=== PATIENT | male | born 1975 | race Caucasian/White ===

== ENCOUNTER 2020-01-16 23:30 | Observation (INO) | payer BC, SELFPAY ==
--- NOTE | ~2020-01-16 | US_ITS ---
EXAMINATION: US venous doppler [facility] DATE: 01/17/2020 09:27 INDICATION: Acute pulmonary emboli. TECHNIQUE: Grayscale ultrasound images without and with compression and Doppler ultrasound images of the bilateral lower extremity veins were obtained. COMPARISON: None. FINDINGS: The visualized portions of right common femoral vein, profunda (deep) femoral vein, femoral vein, pop liteal vein, peroneal veins, posterior tibial veins, and greater saphenous vein outflow are patent. The visualized portions of left common femoral vein, profunda femoral vein, femoral vein, popliteal v ein, peroneal veins, posterior tibial veins, and greater saphenous vein outflow are patent. There is thrombus in left gastrocnemius vein. IMPRESSION: 1. Deep vein thrombosis involving left gastrocnemius vein. Reviewed, dictated and finalized at location A.
--- NOTE | ~2020-01-16 | CT_ITS ---
EXAMINATION: CTA chest PE protocol DATE: 01/17/2020 01:01 INDICATION: Right chest wall pain. Shortness of breath. TECHNIQUE: Computed tomography angiography (CTA) of the chest was performed with 100 mL Omnipaque-350 intravenous contrast timed to evaluate the pulmonary arteries. Coronal maximum intensity projection 3D-reconstructions were created by the technologist. Automated exposure control and iterative reconst ruction technique were employed. The dose-length product was 851.29 mGy-cm. COMPARISON: CT abdomen and pelvis 01/27/2015 FINDINGS: There is mild atelectasis bilaterally. There are groundglass and airspace opacities in late robasal segment right lower lobe. There is a 5 mm nodule at minor fissure, likely benign. No pleural effusion. The heart size is normal. There are coronary artery calcifications. No pericardial effusion . There is suboptimal opacification of the pulmonary arteries. There are acute pulmonary emboli in th e lower lobes, right worse than left. Sensitivity is decreased by motion artifact. There is diffuse h epatic steatosis. There is mild thoracic spondylosis. IMPRESSION: 1. Acute pulmonary emboli in the lower lobes. 2. Groundglass and airspace opacities in laterobasal segment right lower lobe, consistent with infarc t. Reviewed, dictated and finalized at location A. IMPRESSION: 1. Acute pulmonary emboli in the lower lobes. 2. Groundglass and airspace opacities in laterobasal segment right lower lobe, consistent with infarct.
--- NOTE | ~2020-01-16 | XR_ITS ---
EXAMINATION: XR chest 2V DATE: 01/17/2020 00:25 INDICATION: Chest wall pain with inspiration. Shortness of breath. TECHNIQUE: Frontal and lateral views of the chest were obtained. COMPARISON: Chest CT 01/17/2020 FINDINGS: The chest demonstrates clear lungs without pneumonia, pleural effusion, or pneumothorax. Th e heart size is normal. IMPRESSION: 1. No acute cardiopulmonary disease. Reviewed, dictated and finalized at location A.
[2020-01-16 23:33] VITALS: BP 145/106; PULSE 109; RESP 24; TEMP 36.6; O2SAT 97
--- NOTE | 2020-01-16 23:43 | ECG_ITS ---
Measurements Intervals [place] Rate: 103 P: 42 OH: 127 QRS: 49 QRSD: 105 T: 40 QT: 315 QTc: 412 Interpretive Statements SINUS TACHYCARDIA POSSIBLE LEFT ATRIAL ENLARGEMENT INFERIOR INFARCT, AGE INDETERMINATE BASELINE ARTIFACT- I, II, AVR, AVL, V3 BORDERLINE ECG Electronically Signed On 01-17-2020 6:56:28 CDT by Ricky Lowe D.O.
--- NOTE | 2020-01-16 23:45 | ED.SOB ---
HPI - SOB/Dyspnea General Chief Complaint: Shortness of Breath/Dyspnea Stated Complaint: sob Time Seen by Provider: 01/16/20 23:43 History of Present Illness HPI Narrative: 44 yo male presentig from home with chest pain. His symptoms started with tingling in the right side of his face this morning. He then developed a pain the spread down the right side of his neck and chest. The pain is worse with breathing and coughing. He feels mildly SOB. He reports mild temperature elevation earlier in the day. No pain or swelling in the calfs. His is a daily smoker. No known sick contacts. Related Data Allergies Allergy/AdvReac Type Severity Reaction Status Date / Time No Known Allergies Allergy Unknown Verified 01/16/20 23:49 Review of Systems Review of Systems: All systems reviewed & are unremarkable except as noted in HPI and below Constitutional: Constitutional: Denies chills Cardiovascular: Cardiovascular: Reports chest pain and Reports radiating jaw, neck or arm pain Respiratory: Respiratory: Reports cough and Reports dyspnea Gastrointestinal: Gastrointestinal: Denies nausea and Denies vomiting Neurologic: Denies dizziness and Denies weakness PMFSH Family History Family History Grandparent Family history of pancreatic cancer Social History Social History Smoking status: Light tobacco smoker Alcohol intake: never Exam Const: General: healthy appearing and alert Nutritional Appearance: well nourished Orientation/consciousness: patient oriented x3 Other: Mild distress HENMT: Head: normal to inspection Chest: Chest palpation & inspection: tenderness rib (right) Resp: Effort & Inspection: tachypneic (shallow) Auscultation: wheezes Cardio: Rate: tachycardic Rhythm: regular rhythm GI: GI Palp: Yes Soft to palpation and No Tenderness to palpation present (GI) Skin: General skin exam: normal color Rashes: no rashes Neuro: General: patient oriented x3, moves all extremities and CN's II-XI intact bilaterally Speech: normal speech Extrem: General: normal to inspection and no edema Other: no calf tenderness Course Vital Signs Vital signs: Vital Signs Temperature 36.6 C 01/16/20 23:33 Pulse Rate 109 H 01/16/20 23:33 Respiratory Rate 24 H 01/16/20 23:33 Blood Pressure 145/106 H 01/16/20 23:33 Pulse Oximetry 97 01/16/20 23:33 Temperature 36.6 C 01/16/20 23:33 Pulse Rate 97 01/17/20 01:32 Respiratory Rate 35 H 01/17/20 01:32 Blood Pressure 141/78 H 01/17/20 01:32 Pulse Oximetry 98 01/17/20 01:32 MDM - SOB/Dyspnea Differential Diagnosis Differential diagnosis: Likely acute exacerbation of chronic obstructive airways disease, community acquired pneumonia and pulmonary embolism Medical Records Attestation: I reviewed the patient's medical records. Lab Data Attestation: I reviewed the patient's lab results. Result diagrams: 01/16/20 23:48 01/16/20 23:48 Labs: Lab Results 01/16/20 01/16/20 Range/Units 23:48 23:48 WBC 15.4 H (4.5-10.0) K/mm3 RBC 5.53 (4.6-6.20) M/mm3 Hgb 16.6 (14.0-18.0) g/dL Hct 47.4 (42.0-52.0) % MCV 85.7 (80-100) fl MCH 30.0 (26-34) pg MCHC 35.0 (32-36) g/dl RDW 12.0 (11.5-14.5) % Plt Count 206 (150-375) k/mm3 MPV 9.6 (7.4-10.4) fl Immature Gran % (Auto) 0.5 (0-0.5) % Neut % (Auto) 69.2 (45.5-73.1) % Lymph % (Auto) 21.1 (18.3-44.2) % [place] % (Auto) 8.3 (2.6-8.5) % Eos % (Auto) 0.7 (0-4.4) % Baso % (Auto) 0.2 (0.2-1.2) % Lymph # (Auto) 3.24 H (0.9-3.2) K/mm3 [place] # (Auto) 1.3 H (0.1-0.6) K/mm3 Eos # (Auto) 0.1 (0-0.3) K/mm3 Baso # (Auto) 0.0 (0.0-0.1) K/mm3 Abs Immat Gran (auto) 0.08 H (0.00-0.031) K/mm3 Absolute Neuts (auto) 10.6 H (1.3-6.7) K/mm3 Absolute Nucleated RBC 0.0 (0.0-0.012) K/mm3 Nucleated
[2020-01-16 23:47] VITALS: PULSE 106
[2020-01-16] MEDS: diazePAM INJ (*CRX) 10 MG/2 ML SYRINGE 5 MG IV PUSH (23:52)
[2020-01-16] MEDS: SODIUM CHLORIDE 0.9% IV 1,000 ML 999 ML IV CONT (23:53)
[2020-01-16 23:54] LABS: Basophils Percent Auto 0.2 % (0.2-1.2); Eosinophils Absolute Auto 0.1 K/mm3 (0-0.3); Eosinophils Percent Auto 0.7 % (0-4.4); Hematocrit 47.4 % (42.0-52.0); Hemoglobin 16.6 g/dL (14.0-18.0); Immature Granulocyte Absolute 0.08 K/mm3 (0.00-0.031); Immature Granulocyte Percent A 0.5 % (0-0.5); Lymphocytes Absolute Auto 3.24 K/mm3 (0.9-3.2); Lymphocytes Percent Auto 21.1 % (18.3-44.2); Mean Corpuscular Volume 85.7 fl (80-100); Mean Platelet Volume 9.6 fl (7.4-10.4); Monocytes Absolute Auto 1.3 K/mm3 (0.1-0.6); Monocytes Percent Auto 8.3 % (2.6-8.5); Neutrophils Absolute Auto 10.6 K/mm3 (1.3-6.7); Neutrophils Percent Auto 69.2 % (45.5-73.1); Platelet Count Result 206 k/mm3 (150-375); Red Blood Count 5.53 M/mm3 (4.6-6.20); White Blood Count 15.4 K/mm3 (4.5-10.0)
[2020-01-16 23:55] VITALS: PULSE 97; RESP 26
[2020-01-16] MEDS: ALBUTEROL SULFATE NEB 2.5 MG/0.5 ML INH 5 MG INHALATION (23:55)
[2020-01-16] MEDS: IPRATROPIUM BR 0.02% INH SOLN 0.5 MG/2.5 ML VIAL INHALATION (23:55)
[2020-01-17] VITALS (25 sets, daily range): BP systolic 120–164; BP diastolic 78–93; PULSE 87–128; RESP 15–35; TEMP 36.4–37.3; O2SAT 93–98; BMI 33.5
[2020-01-17 00:06] LABS: Anion Gap 12 mmol/L (8-16); Blood Urea Nitrogen 15 mg/dL (9-20); Calcium 9.4 mg/dL (8.4-10.2); Carbon Dioxide 22 mmol/L (22-30); Chloride 104 mmol/L (98-107); Estimated Glomerular Filt Rate > 60; Glucose 116 mg/dL (75-110); Potassium 4.1 mmol/L (3.4-5.0); Sodium 138 mmol/L (137-145)
[2020-01-17] MEDS: MORPHINE SULFATE (*CRX) 4 MG/ML INJ IV PUSH ×2 (01:35→03:45)
[2020-01-17] MEDS: ENOXAPARIN 100 MG/ML SYRINGE SUB-Q (01:37)
--- NOTE | 2020-01-17 02:20 | PM.IMHP ---
H&P: HPI History of Present Illness Date/Time: 01/17/20 02:20 Chief complaint: pulmonary emboli Narrative: This is a pleasant obese 44-year-old male who presented to the hospital with complaint of waking up this morning with right-sided pleuritic chest pain. He also experience tingling of the right side of his face this morning that seemed to resolve at this time. His chest discomfort is worse with any movement, breathing, or coughing. Denies any significant shortness of breath. The patient did have fever earlier yesterday. He denies any lower extremity swelling or pain. He is known to smoke about 5 cigarettes a day. The patient denies any recent surgeries or long distance travel. He is not known to have any active cancer. And he is not on any supplemental testosterone therapy. Patient was evaluated emergency room this evening and found to have right lower lobe pulmonary emboli with pulmonary infarction and possible left pulmonary emboli as well. The patient has no previous history of blood clots although he mentions that his mother has had blood clots in the past. He denies any recent trauma. Review of Systems Review of Systems: All systems reviewed & are unremarkable except as noted in HPI and below PMFSH Surgical History Surgical History History of appendectomy Family History Family History Grandparent Family history of pancreatic cancer Social History Social History Years smoked: 20 Smoking status: Current every day smoker Tobacco type: cigarettes Alcohol intake: never Substance use: never Gender identity (if verbalized by the patient): Male Spiritual care concerns: No Comments No significant past medical history. Meds Home Medications and Allergies Home Medications Medication Instructions Recorded Confirmed Type calcium carbonate [Tums] 500 mg PO Q6H PRN 01/17/20 01/17/20 History ibuprofen 600 mg PO Q6H PRN 01/17/20 01/17/20 History Allergies Allergy/AdvReac Type Severity Reaction Status Date / Time No Known Allergies Allergy Unknown Verified 01/16/20 23:49 Vital Signs Vital Signs - 24 hr 01/16/20 23:33 01/16/20 23:47 01/16/20 23:55 Temperature 36.6 C Pulse Rate 109 H 106 H 97 Respiratory Rate 24 H 26 H Blood Pressure 145/106 H Pulse Oximetry 97 01/17/20 01:32 Temperature Pulse Rate 97 Respiratory Rate 35 H Blood Pressure 141/78 H Pulse Oximetry 98 Exam Const: General: cooperative, alert, awake and acute distress ( right-sided chest wall tenderness) mild Nutritional Appearance: well nourished Orientation/consciousness: patient oriented x3 HENMT: Head: normal to inspection General nose exam: Normal external nose present Face and sinus: normal facial exam Mouth: Yes Normal oral and palatal mucosa present and Yes oropharynx normal Eyes: Pupils: Equal, round and reactive pupils present EOM: EOMs intact bilaterally Neck: Neck: supple and no JVD Thyroid: thyroid normal Lymphatic: lymphadenopathy not noted Resp: Effort & Inspection: normal respiratory effort Auscultation: clear to auscultation bilaterally Cardio: Rate: regular rate Rhythm: regular rhythm Heart sounds: no murmurs GI: Inspection: normal to inspection Auscultation: normal bowel sounds Skin: General skin exam: normal color and no rashes or lesions noted Neuro: General: patient oriented x3 Cranial nerves: Yes CN's II-XII intact bilaterally and Yes Equal, round and reactive pupils present Speech: normal speech Motor exam (neuro): 5/5 motor strength present throughout Sensory Exam: normal sensation Extrem: General: normal to inspection and no edema Psych: Mental Status: mental status grossly normal Affect: normal affect H&P: Results Labs Labs: Short CBC 01/16/20 Range/Units 23:4
--- NOTE | 2020-01-17 02:36 | ADMGEN ---
This patient, Kodi Hamlin, was admitted to 3 [facility] Room 307-01 at 0234. Report received from Marian LUCAS in the ED. Patient/family oriented to hospital policies and general routines including ID bracelet, bed and alarms, visiting hours, pain management, procedures, bathroom and other care routines, personal items, smoking policy, room service/diet, and visiting hours. Valuables list has been completed. Information on how to activate the Rapid Response Team has been discussed. Patient/Family are encouraged to report perceived risks to care and to ask questions if they do not understand what they are told or what they should do.
[2020-01-17] MEDS: ALBUTEROL SULFATE NEB 2.5 MG/0.5 ML INH 5 MG INHALATION ×4 (02:56→22:45)
[2020-01-17] MEDS: IPRATROPIUM BR 0.02% INH SOLN 0.5 MG/2.5 ML VIAL INHALATION ×4 (02:56→22:46)
[2020-01-17] MEDS: hydrALAZINE HCL 20 MG/ML VIAL 10 MG IV PUSH (03:46)
[2020-01-17] MEDS: HYDROmorphone HCL INJ (*CRX) 1 MG/ML SYR IV PUSH ×3 (05:17→22:49)
[2020-01-17 06:25] LABS: Basophils Percent Auto 0.2 % (0.2-1.2); Eosinophils Percent Auto 0.1 % (0-4.4); Hemoglobin 15.8 g/dL (14.0-18.0); Immature Granulocyte Absolute 0.09 K/mm3 (0.00-0.031); Immature Granulocyte Percent A 0.6 % (0-0.5); Lymphocytes Absolute Auto 1.74 K/mm3 (0.9-3.2); Lymphocytes Percent Auto 11.6 % (18.3-44.2); Mean Corpuscular HGB Conc 34.3 g/dl (32-36); Mean Corpuscular Hemoglobin 29.9 pg (26-34); Mean Corpuscular Volume 87.1 fl (80-100); Mean Platelet Volume 9.5 fl (7.4-10.4); Monocytes Absolute Auto 1.3 K/mm3 (0.1-0.6); Monocytes Percent Auto 8.8 % (2.6-8.5); Neutrophils Absolute Auto 11.8 K/mm3 (1.3-6.7); Neutrophils Percent Auto 78.7 % (45.5-73.1); Platelet Count Result 190 k/mm3 (150-375); Red Blood Count 5.28 M/mm3 (4.6-6.20); Red Cell Distribution Width 12.1 % (11.5-14.5)
[2020-01-17 06:38] LABS: Anion Gap 11 mmol/L (8-16); Blood Urea Nitrogen 14 mg/dL (9-20); Calcium 8.8 mg/dL (8.4-10.2); Carbon Dioxide 23 mmol/L (22-30); Chloride 103 mmol/L (98-107); Estimated CRCL calculation 119 ml/min; Estimated Glomerular Filt Rate > 60; Glucose 185 mg/dL (75-110); Potassium 3.6 mmol/L (3.4-5.0); Sodium 137 mmol/L (137-145)
[2020-01-17 08:05] LABS: Troponin I < 0.012 ng/mL (0.000-0.034)
--- NOTE | 2020-01-17 09:48 | PM.IMPN ---
Progress Note: A&P Assessment and Plan (1) Pulmonary embolism: Qualifiers: Pulmonary embolism type: multiple subsegmental (without acute cor pulmonale) Qualified Code(s): I26.94 - Multiple subsegmental pulmonary emboli without acute cor pulmonale Code(s): I26.99 - Other pulmonary embolism without acute cor pulmonale Status: Acute Assessment and Plan: The patient has been admitted for observation. B/l Lower lung PEs with associated right infarct and DVT of left gastrocnemius. He still has some pain this morning, although just received dilaudid this morning. Also having associated N/v this morning Continue therapeutic Lovenox and transition to oral anticoagulant; Eliquis is being priced by [facility] It has been explained to the patient in detail that he should be tested for hereditary forms of thrombophilia in the outpatient when he is discharged since his mother also had a history of blood clots and his current pulmonary emboli seem to have been unprovoked. Factor V leiden ordered for tomorrow, however further testing will likely need to wait until after VTE treatment as an outpatient Will taper narcotics to see if any improvement Zofran PRN for n/v Monitor overnight (2) Hypertension: Qualifiers: Hypertension type: unspecified Qualified Code(s): I10 - Essential (primary) hypertension Code(s): I10 - Essential (primary) hypertension Status: Acute Assessment and Plan: BP 120s sys this morning PRN hydralazine IV w/ parameters. (3) Leukocytosis: Qualifiers: Leukocytosis type: unspecified Qualified Code(s): D72.829 - Elevated white blood cell count, unspecified Code(s): D72.829 - Elevated white blood cell count, unspecified Status: Acute Assessment and Plan: WBC 15k this morning. Likely secondary to pulmonary emboli and pulmonary infarction. Monitor CBCd. D/c abx (4) Obesity (BMI 30.0-34.9): Code(s): E66.9 - Obesity, unspecified Status: Chronic Assessment and Plan: Healthy lifestyle decisions were encouraged. (5) Tobacco dependence: Code(s): F17.200 - Nicotine dependence, unspecified, uncomplicated Status: Chronic Assessment and Plan: No need for nicotine patch at this time Will provide smoking cessation education Subjective Date/time seen: 01/17/20 09:48 Interval history: Patient is a 44 yo M who is seen in follow up for acute PEs with associated right sided lung infarct evident on CTA of the chest, as well as, DVT of left gastrocnemius vein. Patient is not feeling well this morning, but better then last night. He was nausea and vomiting last night and this morning. His pain is improved with IV dilaudid given this morning. He noted sweats last night but stated he thinks this was because of his pain. His pain is worse with deep inspiration, pleuritic in nature. No other complaints at the moment. Denies f/c, myalgias/arthralgias, headaches, dizziness, lightheadedness, palpitations, cough, d/c, abd pain, changes in BMs, dysuria, hematuria, cloudy urine, calf pain/swelling. Review of Systems Review of Systems: All systems reviewed & are unremarkable except as noted in HPI and below Exam Narrative: Exam Narrative: General: Patient resting supine in bed; ill, uncomfortable, and tired appearing. Difficulty sitting up due to pain. HEENT: Normocephalic, EOMI, oral mucosa moist. Cardiovascular: Rate and rhythm are regular. No notable murmur, rub, or gallop. Respiratory: Lungs clear to auscultation all claudio. Non-labored breathing. Abdomen: Soft, non-tender, non-distended, bowel sounds present. Extremities: Peripheral pulses intact. No edema. NTTP b/l calves Neuro: No focal neurological deficits. Speech is clear. Objective Data Vital S
[2020-01-17] MEDS: ONDANSETRON INJ 4 MG/2 ML VIAL IV PUSH (09:50)
[2020-01-17] MEDS: ENOXAPARIN 120 MG/0.8 ML SYRINGE 110 MG SUB-Q (10:08)
[2020-01-17] MEDS: LORazepam INJ (*CRX) 2 MG/ML VIAL 0.25 MG IV PUSH (16:30)
[2020-01-17] MEDS: HYDROmorphone HCL INJ (*CRX) 1 MG/ML SYR 0.5 MG IV PUSH (16:32)
[2020-01-17] MEDS: APIXABAN 5 MG TABLET 10 MG PO (21:25)
--- NOTE | 2020-01-17 23:23 | PC.NURSE ---
01/17/20 at 2230--patient sitting at bed coughing up thick moderate amount of yellow sputum, notified Dr Carter of increased coughing with small amount of blood tinged sputum in emesis basis, respiratory at bedside for resp treatment, new orders received at this time. TDialRNC
[2020-01-18] VITALS (11 sets, daily range): BP systolic 117; BP diastolic 59; PULSE 80–120; RESP 18–22; TEMP 36.8; O2SAT 90–92
--- NOTE | 2020-01-18 | ECHO_ITS ---
Patient Info Name: Kodi Hamlin Age: 44 years : 1975 Gender: Male Ht: 72 in Wt: 246 lbs BSA: 2.41 m2 HR: 95 bpm BP: 117 / 59 mmHg Heart Rhythm: Sinus Rhythm Technical Quality: Good Exam Date: 01/18/2020 11:36 AM Exam Location: [facility] Card Pulmonary Patient Status: Inpatient Admit Date: 01/17/2020 Staff Ordering Physician: Hafsa Campbell PA-C Licensed Clinician: Jono Abdul RDCS Attending Provider: Hafsa Campbell PA-C Referring Physician: Shannan GARCÍA; Exam Type: CA echo doppler color flow Study Info Indications I26.99 - Other pulmonary embolism without acute cor pulmonale Complete two-dimensional, color flow and Doppler transthoracic echocardiogram is performed. History/Risk Factors Bilateral pulmonary embolism w/ DVT. Summary 1. Complete two-dimensional, color flow and Doppler transthoracic echocardiogram is performed. 2. Left ventricular chamber dimension is normal. 3. Left ventricular systolic function is normal, estimated at 60-65%. 4. The left ventricular diastolic function is normal. 5. E/e' 7 is not elevated. 6. No pulmonary hypertension, estimated pulmonary arterial systolic pressure is 24 mmHg. Left Ventricle E/e' 7 is not elevated. Left ventricular chamber dimension is normal. Left ventricular systolic function is normal, estimated at 60-65%. The left ventricular diastolic function is normal. Right Ventricle Right ventricular systolic function is normal with normal TAPSE 2.1 cm. Right ventricular chamber dimension is normal. Left Atria Left atrial chamber dimension is normal. Right Atria Right atrial chamber dimension is normal. Aortic Valve The aortic valve is trileaflet. There is no aortic valve stenosis. There is no aortic valve regurgitation. Pulmonic Valve There is no pulmonic regurgitation. Mitral Valve There is no mitral valve stenosis. There is no mitral valve regurgitation. Tricuspid Valve There is no tricuspid valve regurgitation. No pulmonary hypertension, estimated pulmonary arterial systolic pressure is 24 mmHg. Pericardium/Pleural There is no pericardial effusion. Inferior Vena Cava Normal inferior vena cava with >50% collapse upon inspiration consistent with normal right atrial pressure, 5 mmHg. Aorta The aortic root size at the sinus of Valsalva is normal. Left Ventricular Outflow Tract Name Value Normal LVOT 2D LVOT Diameter 2.1 cm LVOT Doppler LVOT Peak Gradient 6 mmHg LVOT Mean Gradient 3 mmHg LVOT VTI 21 cm LVOT VTI/AV VTI Ratio 0.8 LVOT Stroke Volume 71 ml LVOT CO 6.5 l/min LVOT CI 2.7 l/min/m2 Mitral Valve Name Value Normal MV Doppler
[2020-01-18] MEDS: ALBUTEROL SULFATE NEB 2.5 MG/0.5 ML INH 5 MG INHALATION ×3 (03:42→13:38)
[2020-01-18] MEDS: IPRATROPIUM BR 0.02% INH SOLN 0.5 MG/2.5 ML VIAL INHALATION ×3 (03:43→13:38)
[2020-01-18] MEDS: guaiFENesin/DEXTROMETHORPHAN 10 ML UDC PO (04:03)
[2020-01-18] MEDS: HYDROmorphone HCL INJ (*CRX) 1 MG/ML SYR IV PUSH (04:04)
[2020-01-18 06:35] LABS: Basophils Percent Auto 0.1 % (0.2-1.2); Hematocrit 43.3 % (42.0-52.0); Hemoglobin 14.7 g/dL (14.0-18.0); Immature Granulocyte Absolute 0.09 K/mm3 (0.00-0.031); Immature Granulocyte Percent A 0.6 % (0-0.5); Lymphocytes Absolute Auto 1.33 K/mm3 (0.9-3.2); Lymphocytes Percent Auto 9.5 % (18.3-44.2); Mean Corpuscular HGB Conc 33.9 g/dl (32-36); Mean Corpuscular Hemoglobin 29.6 pg (26-34); Mean Corpuscular Volume 87.1 fl (80-100); Mean Platelet Volume 9.5 fl (7.4-10.4); Monocytes Absolute Auto 1.1 K/mm3 (0.1-0.6); Monocytes Percent Auto 7.6 % (2.6-8.5); Neutrophils Absolute Auto 11.5 K/mm3 (1.3-6.7); Neutrophils Percent Auto 82.2 % (45.5-73.1); Platelet Count Result 178 k/mm3 (150-375); Red Blood Count 4.97 M/mm3 (4.6-6.20); Red Cell Distribution Width 12.3 % (11.5-14.5)
[2020-01-18 06:56] LABS: Anion Gap 9 mmol/L (8-16); Blood Urea Nitrogen 13 mg/dL (9-20); Carbon Dioxide 26 mmol/L (22-30); Chloride 102 mmol/L (98-107); Estimated CRCL calculation 119 ml/min; Estimated Glomerular Filt Rate > 60; Glucose 159 mg/dL (75-110); Magnesium 2.1 mg/dL (1.6-2.3); Potassium 3.7 mmol/L (3.4-5.0); Sodium 137 mmol/L (137-145)
[2020-01-18] MEDS: APIXABAN 5 MG TABLET 10 MG PO (09:04)
[2020-01-18] MEDS: ACETAMINOPHEN 325 MG TABLET 650 MG PO (09:05)
--- NOTE | 2020-01-18 14:04 | PM.DS ---
DS: Admitting Diagnosis Admitting Diagnosis Admitting Diagnosis: pulmonary emboli DS: Discharge Diagnosis Discharge Diagnosis (1) Pulmonary embolism: Qualifiers: Pulmonary embolism type: multiple subsegmental (without acute cor pulmonale) Qualified Code(s): I26.94 - Multiple subsegmental pulmonary emboli without acute cor pulmonale Code(s): I26.99 - Other pulmonary embolism without acute cor pulmonale Status: Acute Assessment and Plan: (2) Hypertension: Qualifiers: Hypertension type: unspecified Qualified Code(s): I10 - Essential (primary) hypertension Code(s): I10 - Essential (primary) hypertension Status: Acute Assessment and Plan: (3) Leukocytosis: Qualifiers: Leukocytosis type: unspecified Qualified Code(s): D72.829 - Elevated white blood cell count, unspecified Code(s): D72.829 - Elevated white blood cell count, unspecified Status: Acute Assessment and Plan: (4) Obesity (BMI 30.0-34.9): Code(s): E66.9 - Obesity, unspecified Status: Chronic Assessment and Plan: (5) Tobacco dependence: Code(s): F17.200 - Nicotine dependence, unspecified, uncomplicated Status: Chronic Assessment and Plan: DS: Summary Hospital Course Reason for hospitalization: The patient is a 44 year old man with no chronic medical history, who presented to the ER with symptoms of right sided pleuretic chest pain with increased pain with taking a deep breath, coughing prior to arrival. Initial vitals showed temperature of 97.8?, blood pressure 145/106, tachycardic at 109, increased respiratory rate at 24, normal oxygen saturation 97% on room air. Labs showed leukocytosis at 15,400, with normal neutrophil count, normal BMP, negative troponin. CTA of chest showed acute pulmonary emboli in the lower lobes, and ground-glass and airspace opacities in the lateral basal segment right lower lobe consistent with infarct. Venous Dopplers showed DVT involving the left gastrocnemius vein. Patient was admitted into the hospital for acute PE and DVT. He was started on anticoagulation for acute treatment. An echocardiogram was completed which showed normal EF at 60-65%, normal diastolic dysfunction, no pulmonary hypertension, or changes to right ventricular systolic function. The patient was switched to Eliquis for the treatment of acute PE/DVT and was discharged home without any more chest discomfort or shortness of breath. For discharge he informed me that he has a right ear infection and right tooth infection so he was given Augmentin and instructed to follow-up with his primary care provider and dentist. He was given information about how to contact a primary care provider and informed he needs to follow-up within next few weeks since he will need refills of his Eliquis for the into the month. Patient understands and agrees the plan all questions answered. Status at Discharge Cognitive/behavioral status at discharge: Stable, improved. Time Spent with Patient Time attestation: Total time spent providing and/or coordinating discharge services: Time spent: Greater than 30 minutes Exam Narrative: Exam Narrative: General: 44-year-old man laying flat in bed with head elevated at 35 degrees watching TV. Appears comfortable. In no acute distress. Skin: No jaundice or cyanosis. Good skin turgor. Neck: Full range of motion. Supple. Respiratory: Lungs are clear to auscultation bilaterally. No bony chest wall tenderness. Cardiovascular: The heart has a regular rate and rhythm without murmur. Lower extremities: No lower extremity edema, erythema noted. Dist
== END 2020-01-18 14:35 | disposition home or self-care (01) ==
LOC: ANHED 01-17 01:40 → ANH3MEDSUR 01-17 02:26
PROVIDERS: Physician Assistant; Admitting Provider Family Medicine; Emergency Provider Emergency Medicine; Visit Provider Physician Assistant
DX: I26.94 Multiple subsegmental thrombotic pulmonary emboli without acute cor pulmonale (principal); I82.462 Acute embolism and thrombosis of left calf muscular vein; R06.02 Shortness of breath; R07.9 Chest pain, unspecified; D72.829 Elevated white blood cell count, unspecified; I10 Essential (primary) hypertension; F17.210 Nicotine dependence, cigarettes, uncomplicated; E66.9 Obesity, unspecified; Z68.33 Body mass index [BMI] 33.0-33.9, adult
CPT/HCPCS: 36415; 71046; 71275; 80048; 81241; 83735; 84484; 85025; 93005; 93306; 93970; 94640; 96361; 96372; 96374; 96375; 96376; 99291; A9270; G0378; J0360; J1170; J1650; J2060; J2270; J2405; J3360; J7030; Q9967